=== PATIENT | female | born 1950 | race Asian ===

== ENCOUNTER 2018-11-01 18:52 | Emergency (ER) | payer OTHER ==
[~2018-11-01] VITALS: Ht 170.2 cm; Wt 821.0 kg
[2018-11-01 19:52] VITALS: BP 160/95; TEMP 98.6
== END 2018-11-01 19:52 | disposition home or self-care (01) ==
LOC: ED 18:52
DX: B35.6 Tinea cruris (principal)
CPT/HCPCS: 81000; 99282; 99283